=== PATIENT | female | born 1970 | race Two or more races ===

== ENCOUNTER → 2016-10-06 | Outpatient (CLI) | payer OTHER | LOC: RAD 13:16 | PROVIDERS: ATTEND Family Medicine | DX: M50.11 Cervical disc disorder with radiculopathy, high cervical region (principal) | CPT/HCPCS: 72141 ==

== ENCOUNTER → 2016-10-07 | Outpatient (CLI) | payer OTHER ==
--- NOTE | 2016-10-07 07:53 | WOMENS IMAGING REPORT ---
EXAM DESCRIPTION: U/S ABDOMEN LIMITED COMPLETED DATE/TIME: 10/07/2016 7:28 am REASON FOR STUDY: R10.816 ABD TENDERNESS EPIGASTRIC R10.816 EPIGASTRIC ABDOMINAL TENDERNESS COMPARISON: 12/04/2012 TECHNIQUE: Dynamic and static grayscale images acquired of the abdomen and recorded on PACS. Additio nal selected color Doppler and spectral images recorded. LIMITATIONS: None. FINDINGS: PANCREAS: No masses. Visualized pancreatic duct normal caliber. LIVER: No masses. Echotexture normal. LIVER VASCULATURE: Normal directional flow of the main portal vein and hepatic veins. GALLBLADDER: No stones. Normal wall thickness. No pericholecystic fluid. ULTRASOUND-DETECTED JARRETT'S SIGN: Negative. INTRAHEPATIC DUCTS AND COMMON DUCT: CBD and intrahepatic ducts normal caliber. No filling defects. INFERIOR VENA CAVA: Normal flow. AORTA: No aneurysm. RIGHT KIDNEY: Normal size. Normal echogenicity. No solid or suspicious masses. No hydronephrosis. No calcifications. PERITONEAL AND RIGHT PLEURAL SPACE: No ascites or effusions. OTHER: No other significant findings. TECHNICAL DOCUMENTATION: JOB ID: [id number] [employer]- All Rights Reserved
== END ==
LOC: WI 06:52
PROVIDERS: ATTEND Internal Medicine Gastroenterology
DX: R10.816 Epigastric abdominal tenderness (principal)
CPT/HCPCS: 76705

== ENCOUNTER → 2017-03-07 | Outpatient (CLI) | payer OTHER ==
--- NOTE | 2017-03-07 17:30 | WOMENS IMAGING REPORT ---
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 Bilateral 90 mediolateral views Bilateral breast ultrasound was performed in the upper outer quadrants and right breast retroareolar ultrasound was performed given history of clear right nipple discharge. LIMITATIONS: None. FINDINGS: RIGHT BREAST MASSES: No suspicious masses. CALCIFICATIONS: No new or suspicious calcifications. ARCHITECTURAL DISTORTION: None. DEVELOPING DENSITY: None. ASYMMETRY: None noted. OTHER: No other significant findings. LEFT BREAST MASSES: No suspicious masses. CALCIFICATIONS: No new or suspicious calcifications. ARCHITECTURAL DISTORTION: None. DEVELOPING DENSITY: None. ASYMMETRY: None noted. OTHER: No other significant finding. Read with the assistance of CAD: .[facility] - R2 Cenova Version 1.3 .[facility] Imaging - R2 Cenova Version 1.3 .[facility] Imaging - R2 Cenova Version 2.4 .[facility] - R2 Cenova Version 2.4 .[facility] - R2 Holistic Health Practitioner Version 9.2 Bilateral breast ultrasound: Patient describes palpable abnormalities in the upper outer quadrants bilaterally. Ultrasound of the right and left upper outer quadrant demonstrates no discrete cystic or solid lesions. No focal find ings. No worrisome acoustic absorption. Patient gives a history of clear right nipple discharge. Ultrasound of the right retroareolar region demonstrates no dilated ducts, cysts, or nodules. IMPRESSION: No mammographic or sonographic evidence for malignancy bilaterally. BREAST DENSITY: c. The breasts are heterogeneously dense, which may obscure small masses. BIRAD: 1 Negative. RECOMMENDATION: RECOMMENDED FOLLOW UP: Clinical follow-up for nipple discharge and palpable abnormal ity. Otherwise, please consider bilateral screening tomosynthesis in February 2018 given heterogeneously dense tissue SPECIFIC INTERVENTION/IMAGING/CONSULTATION RECOMMENDED:Clinical follow-up for nipple discharge and pa lpable abnormalities. COMMUNICATION:Patient notified by letter COMMENT: The patient has been notified of the results by letter per MQSA requirements. Additional no tification policies are in place for contacting patient with suspicious or incomplete findings. Quality ID #[id number]: The [employer] recommends an annual screening mammogram for women aged 40 years or over. This facility utilizes a reminder system to ensure that all patients receive reminder letters, and/or direct phone calls for appointments. This includes reminders for routine scr eening mammograms, diagnostic mammograms, or other Breast Imaging Interventions when appropriate. Th is patient will be placed in the appropriate reminder system. The [employer] (ACR) has developed recommendations for screening MRI of the breast s in certain patient populations, to be used in conjunction with mammography. Breast MRI surveillanc e may be appropriate for women with more than 20% lifetime risk of developing breast cancer as deter mined by genetic testing, significant family history of the disease, or history of mantle radiation f or Hodgkins Disease. ACR Practice Guidelines 2008. TECHNICAL DOCUMENTATION: FINDING NUMBER: (1) ASSESSMENT: (1) JOB ID: [id number] [employer]- All Rights Reserved
--- NOTE | 2017-03-07 17:30 | WOMENS IMAGING REPORT ---
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 Bilateral 90 mediolateral views Bilateral breast ultrasound was performed in the upper outer quadrants and right breast retroareolar ultrasound was performed given history of clear right nipple discharge. LIMITATIONS: None. FINDINGS: RIGHT BREAST MASSES: No suspicious masses. CALCIFICATIONS: No new or suspicious calcifications. ARCHITECTURAL DISTORTION: None. DEVELOPING DENSITY: None. ASYMMETRY: None noted. OTHER: No other significant findings. LEFT BREAST MASSES: No suspicious masses. CALCIFICATIONS: No new or suspicious calcifications. ARCHITECTURAL DISTORTION: None. DEVELOPING DENSITY: None. ASYMMETRY: None noted. OTHER: No other significant finding. Read with the assistance of CAD: .[facility] - R2 Cenova Version 1.3 .[facility] Imaging - R2 Cenova Version 1.3 .[facility] Imaging - R2 Cenova Version 2.4 .[facility] - R2 Cenova Version 2.4 .[facility] - R2 Hand Glove Cleaner Version 9.2 Bilateral breast ultrasound: Patient describes palpable abnormalities in the upper outer quadrants bilaterally. Ultrasound of the right and left upper outer quadrant demonstrates no discrete cystic or solid lesions. No focal find ings. No worrisome acoustic absorption. Patient gives a history of clear right nipple discharge. Ultrasound of the right retroareolar region demonstrates no dilated ducts, cysts, or nodules. IMPRESSION: No mammographic or sonographic evidence for malignancy bilaterally. BREAST DENSITY: c. The breasts are heterogeneously dense, which may obscure small masses. BIRAD: 1 Negative. RECOMMENDATION: RECOMMENDED FOLLOW UP: Clinical follow-up for nipple discharge and palpable abnormal ity. Otherwise, please consider bilateral screening tomosynthesis in February 2018 given heterogeneously dense tissue SPECIFIC INTERVENTION/IMAGING/CONSULTATION RECOMMENDED:Clinical follow-up for nipple discharge and pa lpable abnormalities. COMMUNICATION:Patient notified by letter COMMENT: The patient has been notified of the results by letter per MQSA requirements. Additional no tification policies are in place for contacting patient with suspicious or incomplete findings. Quality ID #[id number]: The [employer] recommends an annual screening mammogram for women aged 40 years or over. This facility utilizes a reminder system to ensure that all patients receive reminder letters, and/or direct phone calls for appointments. This includes reminders for routine scr eening mammograms, diagnostic mammograms, or other Breast Imaging Interventions when appropriate. Th is patient will be placed in the appropriate reminder system. The [employer] (ACR) has developed recommendations for screening MRI of the breast s in certain patient populations, to be used in conjunction with mammography. Breast MRI surveillanc e may be appropriate for women with more than 20% lifetime risk of developing breast cancer as deter mined by genetic testing, significant family history of the disease, or history of mantle radiation f or Hodgkins Disease. ACR Practice Guidelines 2008. TECHNICAL DOCUMENTATION: FINDING NUMBER: (1) ASSESSMENT: (1) JOB ID: [id number] [employer]- All Rights Reserved
--- NOTE | 2017-03-07 17:30 | WOMENS IMAGING REPORT ---
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 Bilateral 90 mediolateral views Bilateral breast ultrasound was performed in the upper outer quadrants and right breast retroareolar ultrasound was performed given history of clear right nipple discharge. LIMITATIONS: None. FINDINGS: RIGHT BREAST MASSES: No suspicious masses. CALCIFICATIONS: No new or suspicious calcifications. ARCHITECTURAL DISTORTION: None. DEVELOPING DENSITY: None. ASYMMETRY: None noted. OTHER: No other significant findings. LEFT BREAST MASSES: No suspicious masses. CALCIFICATIONS: No new or suspicious calcifications. ARCHITECTURAL DISTORTION: None. DEVELOPING DENSITY: None. ASYMMETRY: None noted. OTHER: No other significant finding. Read with the assistance of CAD: .[facility] - R2 Cenova Version 1.3 .[facility] Imaging - R2 Cenova Version 1.3 .[facility] Imaging - R2 Cenova Version 2.4 .[facility] [place] - R2 Cenova Version 2.4 .[facility] - R2 Junk Dealer Version 9.2 Bilateral breast ultrasound: Patient describes palpable abnormalities in the upper outer quadrants bilaterally. Ultrasound of the right and left upper outer quadrant demonstrates no discrete cystic or solid lesions. No focal find ings. No worrisome acoustic absorption. Patient gives a history of clear right nipple discharge. Ultrasound of the right retroareolar region demonstrates no dilated ducts, cysts, or nodules. IMPRESSION: No mammographic or sonographic evidence for malignancy bilaterally. BREAST DENSITY: c. The breasts are heterogeneously dense, which may obscure small masses. BIRAD: 1 Negative. RECOMMENDATION: RECOMMENDED FOLLOW UP: Clinical follow-up for nipple discharge and palpable abnormal ity. Otherwise, please consider bilateral screening tomosynthesis in February 2018 given heterogeneously dense tissue SPECIFIC INTERVENTION/IMAGING/CONSULTATION RECOMMENDED:Clinical follow-up for nipple discharge and pa lpable abnormalities. COMMUNICATION:Patient notified by letter COMMENT: The patient has been notified of the results by letter per MQSA requirements. Additional no tification policies are in place for contacting patient with suspicious or incomplete findings. Quality ID #225: The [employer] recommends an annual screening mammogram for women aged 40 years or over. This facility utilizes a reminder system to ensure that all patients receive reminder letters, and/or direct phone calls for appointments. This includes reminders for routine scr eening mammograms, diagnostic mammograms, or other Breast Imaging Interventions when appropriate. Th is patient will be placed in the appropriate reminder system. The [employer] (ACR) has developed recommendations for screening MRI of the breast s in certain patient populations, to be used in conjunction with mammography. Breast MRI surveillanc e may be appropriate for women with more than 20% lifetime risk of developing breast cancer as deter mined by genetic testing, significant family history of the disease, or history of mantle radiation f or Hodgkins Disease. ACR Practice Guidelines 2008. TECHNICAL DOCUMENTATION: FINDING NUMBER: (1) ASSESSMENT: (1) JOB ID: [id number] [employer]- All Rights Reserved
== END ==
LOC: WI 10:11
PROVIDERS: ATTEND Family Medicine
DX: D48.61 Neoplasm of uncertain behavior of right breast (principal)
CPT/HCPCS: 76642; G0204; 77066

== ENCOUNTER → 2017-04-04 | Outpatient (CLI) | payer OTHER ==
[2017-04-06 06:39] LABS: PROLACTIN 6.4 ng/mL (4.8-23.3)
[2017-04-06 07:13] LABS: ESTRADIOL 40.6 pg/mL (.); FOLLICLE STIMULATING HORMONE 8.3 mIU/mL (.); LUTEINIZING HORMONE 4.8 mIU/mL (.)
== END ==
LOC: OD 16:32
PROVIDERS: ATTEND Family Medicine
DX: O20.9 Hemorrhage in early pregnancy, unspecified (principal); N39.0 Urinary tract infection, site not specified; N64.52 Nipple discharge; N95.1 Menopausal and female climacteric states
CPT/HCPCS: 36415; 82670; 83001; 83002; 84146; 84702; 87086

== ENCOUNTER 2018-11-27 03:32 | Emergency (ER) | payer OTHER ==
[2018-11-27 08:08] LABS: ABSOLUTE BASOPHILS # (AUTO) 0.1 10^3/uL (0.0-0.2); ABSOLUTE EOSINOPHILS # (AUTO) 0.1 10^3/uL (0.0-0.6); ABSOLUTE LYMPHOCYTES (AUTO) 1.8 10^3/uL (0.5-4.7); ABSOLUTE NEUT (AUTO) 7.8 10^3/uL (1.7-8.2); BASOPHILS % (AUTO) 0.9 % (0-2); EOSINOPHILS % (AUTO) 1.2 % (0-6); HEMATOCRIT 32.4 % (36.0-47.0); HEMOGLOBIN 10.8 g/dL (12.0-15.5); LYMPHOCYTES % (AUTO) 16.5 % (13-45); MEAN CORPUSCULAR HEMOGLOBIN 24.3 pg (27.0-33.4); MEAN CORPUSCULAR HGB CONC 33.3 g/dL (32.0-36.0); MEAN CORPUSCULAR VOLUME 73 fl (80-97); MONOCYTES % (AUTO) 9.2 % (3-13); PLATELET COUNT 277 10^3/uL (150-450); RED BLOOD COUNT 4.42 10^6/uL (3.72-5.28); SEGMENTED NEUTROPHILS % (AUTO) 72.2 % (42-78); TOTAL CELLS COUNTED % (AUTO) 100 %; WHITE BLOOD COUNT 10.8 10^3/uL (4.0-10.5)
[2018-11-27 08:18] LABS: ALANINE AMINOTRANSFERASE 20 U/L (9-52); ALBUMIN 3.6 g/dL (3.5-5.0); ALKALINE PHOSPHATASE 76 U/L (38-126); ANION GAP 10 (5-19); ASPARTATE AMINO TRANSFERASE 12 U/L (14-36); BILIRUBIN,DIRECT 0.5 mg/dL (0.0-0.4); BILIRUBIN,TOTAL 0.5 mg/dL (0.2-1.3); BLOOD UREA NITROGEN 16 mg/dL (7-20); CALCIUM 9.5 mg/dL (8.4-10.2); CARBON DIOXIDE 23 mmol/L (22-30); CHLORIDE 106 mmol/L (98-107); GLUCOSE 95 mg/dL (75-110); POTASSIUM 4.2 mmol/L (3.6-5.0); SODIUM 138.6 mmol/L (137-145); TOTAL PROTEIN 6.3 g/dL (6.3-8.2)
--- NOTE | 2018-11-27 08:57 | RADIOLOGY REPORT (SQ) ---
EXAM DESCRIPTION: U/S NON-OB PELVIS TV W/O DOP COMPLETED DATE/TIME: 11/27/2018 8:42 am REASON FOR STUDY: sudden onset pelvic pain,LMP 10-17-18 COMPARISON: None. TECHNIQUE: Dynamic and static grayscale images acquired of the pelvis via transvaginal approach and recorded on PACS. Additional selected color Doppler and spectral images recorded. LIMITATIONS: None. FINDINGS: UTERUS: Contour normal. No mass. Uterus is 9 x 8 x 7 cm in size ENDOMETRIAL STRIPE: No focal or generalized thickening. No masses. Endometrial stripe 11 mm in thick ness CERVIX: No nabothian cysts. Cervix closed, 2.7 cm in length. RIGHT OVARY AND DOPPLER: Normal size, 3 x 2.4 x 2.6 cm in size with a 2 cm simple cyst. No worrisome masses. Normal arterial vascular flow without evidence for torsion. LEFT OVARY AND DOPPLER: Normal size, 2.8 x 1.4 x 1.3 cm. No worrisome masses. Normal arterial vascula r flow without evidence for torsion. FREE FLUID: None noted. OTHER: No other significant finding. IMPRESSION: NORMAL TRANSVAGINAL PELVIC ULTRASOUND. TECHNICAL DOCUMENTATION: JOB ID: [id number] [employer]- All Rights Reserved Rev-02/02 Reading location - IP/workstation name: [email or web address]
[2018-11-27 09:18] LABS: APPEARANCE,URINE SLIGHTLY-CLOUDY; BILIRUBIN,URINE NEGATIVE (NEGATIVE); COLOR,URINE YELLOW; GLUCOSE, URINE NEGATIVE (NEGATIVE); KETONES,URINE NEGATIVE (NEGATIVE); LEUKOCYTE ESTERASE,URINE NEGATIVE (NEGATIVE); NITRITE,URINE NEGATIVE (NEGATIVE); PROTEIN,URINE NEGATIVE (NEGATIVE); URINE SPECIFIC GRAVITY 1.023; UROBILINOGEN,URINE NEGATIVE mg/dL (<2.0)
[2018-11-27 10:43] VITALS: BP 115/50
--- NOTE | 2018-11-27 12:14 | ER Document Report ---
Entered by LEI WANG SCRIBE 11/27/18 0729 Acting as scribe for:DEJUAN OBANDO MD ED General - General Chief Complaint: Abdominal Pain Stated Complaint: PELVIC PAIN Time Seen by Provider: 11/27/18 07:10 Primary Care Provider: SOCORRO SRINIVASAN MD [Primary Care Provider] - Follow up as needed Mode of Arrival: Ambulatory Information source: Patient Notes: Patient is a 47 year old female with hypothyroidism presents to the emergency department complaining of abdominal pain onset this morning. Patient states she was woken from her sleep around 0300 due to sharp right lower quadrant abdominal pain. She states the pain has now migrated to the left side of the abdomen. She also reports her last menstrual period being 10/17/2018 and states that is very abnormal due to having regular periods. She states she took multiple tests which were all negative. She denies any vaginal bleeding or vaginal discharge. Patient also mentions having chronic right shoulder pain that radiates into the right side of her neck, right anterior chest wall and sends tingling sensations to the 1st, 2nd and 3rd fingers. Of significance, patient reports a history of 1 miscarriage and 2 ectopic pregnancies which was resolved with medications. TRAVEL OUTSIDE OF THE [place] IN LAST 30 DAYS: No - Related Data Allergies/Adverse Reactions: latex [Latex] Allergy (Verified 02/06/12 22:53) morphine [Morphine] Allergy (Verified 02/06/12 22:53) IVP Dye Allergy (Severe, Uncoded 07/28/16 13:19) Past Medical History - General Information source: Patient - Social History Smoking Status: Never Smoker Cigarette use (# per day): No Chew tobacco use (# tins/day): No Smoking Education Provided: No Frequency of alcohol use: None Family History: None Past Surgical History: Reports: Hx Appendectomy, Hx Thyroid Surgery - Immunizations Hx Diphtheria, Pertussis, Tetanus Vaccination: Yes Review of Systems - Review of Systems Constitutional: No symptoms reported EENT: No symptoms reported Cardiovascular: No symptoms reported Respiratory: No symptoms reported Gastrointestinal: See HPI, Abdominal pain Genitourinary: No symptoms reported Female Genitourinary: See HPI, Last menstrual period Musculoskeletal: See HPI Skin: No symptoms reported Hematologic/Lymphatic: No symptoms reported Neurological/Psychological: See HPI -: Yes All other systems reviewed and negative Physical Exam - Vital signs Vitals: Temp Pulse Resp BP Pulse Ox 97.9 F 114 H 14 134/57 H 100 11/27/18 03:38 11/27/18 03:38 11/27/18 03:38 11/27/18 03:38 11/27/18 03:38 - Notes Notes: GENERAL: Alert, interacts well. No acute distress. HEAD: Normocephalic, atraumatic. EYES: Pupils equal, round, and reactive to light. Extraocular movements intact. ENT: Oral mucosa moist, tongue midline. NECK: Full range of motion. Supple. Trachea midline. LUNGS: Clear to auscultation bilaterally, no wheezes, rales, or rhonchi. No respiratory distress. HEART: Regular rate and rhythm. No murmurs, gallops, or rubs. ABDOMEN: Soft, right pelvic tenderness to palpation. Palpating the right pelvic region causes pain in the left pelvic region, does not complain of pain when palpating left pelvic region. Non-distended. Bowel sounds present in all 4 quadrants. No guarding, rigidity, or rebound. EXTREMITIES: Moves all 4 extremities spontaneously. NEUROLOGICAL: Alert and oriented x3. Normal speech. PSYCH: Normal affect, normal mood. SKIN: Warm, dry, normal turgor. No rashes or lesions noted Course - Re-evaluation Re-evalutation: 11/27/18 10:24 Transvaginal ultrasound is normal. Serum hCG is negative. Urinalysis is unremarkable. CBC shows an iron deficiency anemia, otherwise is unremarkable. - Vital Signs Vital signs: Temp Pulse Resp BP Pulse Ox 97.9 F 114 H 14 134/57 H 100 11/27/18 03:38 11/27/18 03:38 11/27/18 03:38 11/27/18 03:38 11/27/18 03:38 - Laboratory Result Diagrams: 11/27/18 07:40 11/27/18 07:40 Laboratory results interpreted by me: 11/27/18 11/27/18 07:40 07:40 WBC 10.8 H Hgb 10.8 L Hct 32.4 L MCV 73 L MCH 24.3 L RDW 18.0 H Direct Bilirubin 0.5 H AST 12 L - Diagnostic Test Radiology reviewed: Reports reviewed - Transvaginal ultrasound is normal. Discharge - Discharge Clinical Impression: Pelvic pain Iron deficiency anemia Qualifiers: Iron deficiency anemia type: unspecified iron deficiency Qualified Code(s): D50.9 - Iron deficiency anemia, unspecified Condition: Stable Disposition: HOME, SELF-CARE Additional Instructions: Abdominal Pain There are many causes of abdominal pain. Pain can mean a serious problem requiring surgery (such as appendicitis). It can also be an innocent problem that goes away on its own (such as a viral infection). Often, time must pass to determine the cause of pain. The physician does not feel that hospitalization is necessary, at present. Things may change within the next 24 hours. Call the doctor or come back for re- examination if any problems occur, such as: (1) Pain that becomes more severe, steady, or becomes concentrated in one specific area. Also, pain that is more severe with movement or coughing. (2) Vomiting that persists or becomes more frequent. (3) Blood in the vomitus, urine, or bowel movements. Blood in the stool may have a tarry or black appearance. (4) Shaking chills or fever greater than 100 degrees F. (5) The abdomen becomes more distended or swollen. (6) Bowel movements cease. (7) Failure to improve as expected. Anemia, Iron Deficiency You have anemia (a lower than normal amount of red blood cells). Our tests show it's due to lack of iron in your body. In infants and children, iron deficiency is usually due to lack of iron in the diet. In adults, it's most often caused by blood loss (heavy periods or intestinal bleeding) or by . If the cause of iron deficiency is not clear, we evaluate for hidden intestinal bleeding. Another possible cause is failure to absorb iron properly. Iron-deficiency is treated with iron supplements. Iron pills can upset your stomach and cause constipation. Taking it with food decreases nausea. Expect t he stool to become darker (but not black). Taking iron with a juice high in vitamin C (orange juice, tomato juice) increases absorption. You can increase your dietary iron by eating liver, oysters, and lean beef; wheat germ, peas, and lentils; and molasses, dried prunes, spinach, and broccoli. Contact the doctor at once if you note black or tarry-looking stools, bloody vomiting, shortness of breath, chest pain, or faintness. Follow-up with your doctor this week to review your lab work to see if you should be on iron supplements. Return to the emergency room if there is any significant change or worsening in your lower abdominal pain. RETURN TO THE EMERGENCY ROOM IF ANY NEW OR WORSENING SYMPTOMS. Referrals: SOCORRO SRINIVASAN MD [Primary Care Provider] - Follow up as needed I personally performed the services described in the documentation, reviewed and edited the documentation which was dictated to the scribe in my presence, and it accurately records my words and actions.
== END 2018-11-27 10:46 | disposition home or self-care (01) ==
LOC: ER 03:32
DX: R10.2 Pelvic and perineal pain (principal); D50.9 Iron deficiency anemia, unspecified; R10.9 Unspecified abdominal pain; R10.31 Right lower quadrant pain; M25.511 Pain in right shoulder; M54.2 Cervicalgia; R07.89 Other chest pain; R20.0 Anesthesia of skin
CPT/HCPCS: 36415; 76830; 80053; 81001; 84703; 85025; 99284

== ENCOUNTER → 2019-01-09 | Outpatient (CLI) | payer OTHER ==
--- NOTE | 2019-01-10 08:25 | WOMENS IMAGING REPORT ---
EXAM DESCRIPTION: BILAT SCREENING MAMMO W/CAD COMPLETED DATE/TIME: 01/09/2019 2:41 pm REASON FOR STUDY: Z12.31 ROUTINE BILATERAL SCREENING Z12.31 ENCNTR SCREEN MAMMOGRAM FOR MALIGNANT N EOPLASM OF NICKI COMPARISON: Multiple since 2008 TECHNIQUE: Standard craniocaudal and mediolateral oblique views of each breast recorded using [employer] l acquisition. LIMITATIONS: None. FINDINGS: No masses, calcifications or architectural distortion. No areas of suspicion. Read with the assistance of CAD. .[facility] - R2 Cenova Version 1.3 .[facility] Imaging - R2 Cenova Version 2.1 .[facility] Imaging - R2 Cenova Version 2.4 .[facility] - R2 Cenova Version 2.4 .[facility] - R2 Volunteer Manager Version 9.2 IMPRESSION: NORMAL MAMMOGRAM. BIRADS 1. BREAST DENSITY: c. The breasts are heterogeneously dense, which may obscure small masses. BIRAD: 1 NEGATIVE RECOMMENDATION: ROUTINE SCREENING COMMENT: The patient has been notified of the results by letter per SA requirements. Additional no tification policies are in place for contacting patient with suspicious or incomplete findings. Quality ID #[id number]: The [employer] [employer] recommends an annual screening mammogram for women aged 40 years or over. This facility utilizes a reminder system to ensure that all patients receive reminder letters, and/or direct phone calls for appointments. This includes reminders for routine scr eening mammograms, diagnostic mammograms, or other Breast Imaging Interventions when appropriate. Th is patient will be placed in the appropriate reminder system. TECHNICAL DOCUMENTATION: FINDING NUMBER: (1) ASSESSMENT: (1) JOB ID: [id number] [employer]- All Rights Reserved Reading location - IP/workstation name: [email or web address]
== END ==
LOC: WI 14:26
PROVIDERS: ATTEND Family Medicine
DX: Z12.31 Encounter for screening mammogram for malignant neoplasm of breast (principal); M51.27 Other intervertebral disc displacement, lumbosacral region
CPT/HCPCS: 77067

== ENCOUNTER → 2019-01-09 | Outpatient (CLI) | payer OTHER ==
[2019-01-09 14:49] LABS: ABSOLUTE BASOPHILS # (AUTO) 0.1 10^3/uL (0.0-0.2); ABSOLUTE EOSINOPHILS # (AUTO) 0.2 10^3/uL (0.0-0.6); ABSOLUTE LYMPHOCYTES (AUTO) 1.6 10^3/uL (0.5-4.7); ABSOLUTE MONOCYTES (AUTO) 0.6 10^3/uL (0.1-1.4); BASOPHILS % (AUTO) 0.9 % (0-2); HEMATOCRIT 41.1 % (36.0-47.0); HEMOGLOBIN 13.9 g/dL (12.0-15.5); LYMPHOCYTES % (AUTO) 19.1 % (13-45); MEAN CORPUSCULAR HEMOGLOBIN 27.8 pg (27.0-33.4); MEAN CORPUSCULAR HGB CONC 33.9 g/dL (32.0-36.0); MEAN CORPUSCULAR VOLUME 82 fl (80-97); MONOCYTES % (AUTO) 7.3 % (3-13); PLATELET COUNT 213 10^3/uL (150-450); RED BLOOD COUNT 5.01 10^6/uL (3.72-5.28); RED CELL DISTRIBUTION WIDTH 22.5 % (11.5-14.0); SEGMENTED NEUTROPHILS % (AUTO) 70.7 % (42-78); TOTAL CELLS COUNTED % (AUTO) 100 %; WHITE BLOOD COUNT 8.4 10^3/uL (4.0-10.5)
[2019-01-09 15:06] LABS: OVALOCYTES 1+; PLATELET COMMENT ADEQUATE; POIKILOCYTOSIS 1+; SCHISTOCYTES SLIGHT; TEAR DROP CELLS SLIGHT
[2019-01-09 15:10] LABS: ALANINE AMINOTRANSFERASE 17 U/L (9-52); ALKALINE PHOSPHATASE 56 U/L (38-126); ANION GAP 10 (5-19); ASPARTATE AMINO TRANSFERASE 12 U/L (14-36); BILIRUBIN,DIRECT 0.2 mg/dL (0.0-0.4); BILIRUBIN,TOTAL 0.5 mg/dL (0.2-1.3); BLOOD UREA NITROGEN 14 mg/dL (7-20); CALCIUM 9.2 mg/dL (8.4-10.2); CARBON DIOXIDE 22 mmol/L (22-30); CHLORIDE 106 mmol/L (98-107); CHOLESTEROL 192.75 mg/dL (0-200); GLUCOSE 77 mg/dL (75-110); IRON(TIBC) 79.7 ug/dL (37-170); POTASSIUM 4.6 mmol/L (3.6-5.0); SODIUM 137.7 mmol/L (137-145); TOTAL PROTEIN 6.7 g/dL (6.3-8.2); TRIGLYCERIDES 117 mg/dL (<150)
--- NOTE | 2019-01-09 15:16 | RADIOLOGY REPORT (SQ) ---
EXAM DESCRIPTION: T SPINE AP/LAT COMPLETED DATE/TIME: 01/09/2019 2:09 pm REASON FOR STUDY: DORSALGIA D50.9 IRON DEFICIENCY ANEMIA, UNSPECIFIED R07.9 CHEST PAIN, UNSPECIFIE D E78.5 HYPERLIPIDEMIA, UNSPECIFIED COMPARISON: None. NUMBER OF VIEWS: Two views. TECHNIQUE: AP and lateral radiographic images acquired of the thoracic spine. LIMITATIONS: None. FINDINGS: MINERALIZATION: Normal. ALIGNMENT: Normal. No scoliosis. VERTEBRAE: No fracture or bone lesion. Maintained height, normal segmentation. DISCS: No significant loss of height or significant narrowing. No large osteophytes. HARDWARE: None in the spine. MEDIASTINUM AND SOFT TISSUES: Normal heart size and aortic contour. No soft tissue abnormality. VISUALIZED LUNG RUBI: Clear. OTHER: No other significant finding. IMPRESSION: NO SIGNIFICANT RADIOGRAPHIC FINDING IN THE THORACIC SPINE. TECHNICAL DOCUMENTATION: JOB ID: [id number] [employer]- All Rights Reserved Reading location - IP/workstation name: [email or web address]
[2019-01-09 15:21] LABS: DIRECT LDL 118 mg/dL (<100)
== END ==
LOC: OD 13:39
PROVIDERS: ATTEND Family Medicine
DX: D50.9 Iron deficiency anemia, unspecified (principal); R07.9 Chest pain, unspecified; E78.5 Hyperlipidemia, unspecified; M54.9 Dorsalgia, unspecified
CPT/HCPCS: 36415; 72070; 80053; 80061; 82728; 83540; 83550; 85025; 85379

== ENCOUNTER → 2019-10-11 | Outpatient (CLI) | payer OTHER ==
[2019-10-11 12:31] LABS: ABSOLUTE EOSINOPHILS # (AUTO) 0.1 10^3/uL (0.0-0.6); ABSOLUTE LYMPHOCYTES (AUTO) 1.6 10^3/uL (0.5-4.7); ABSOLUTE MONOCYTES (AUTO) 0.6 10^3/uL (0.1-1.4); ABSOLUTE NEUT (AUTO) 4.8 10^3/uL (1.7-8.2); BASOPHILS % (AUTO) 0.7 % (0-2); EOSINOPHILS % (AUTO) 1.5 % (0-6); HEMATOCRIT 41.3 % (36.0-47.0); HEMOGLOBIN 14.1 g/dL (12.0-15.5); LYMPHOCYTES % (AUTO) 22.6 % (13-45); MEAN CORPUSCULAR HEMOGLOBIN 29.7 pg (27.0-33.4); MEAN CORPUSCULAR HGB CONC 34.2 g/dL (32.0-36.0); MEAN CORPUSCULAR VOLUME 87 fl (80-97); MONOCYTES % (AUTO) 7.9 % (3-13); PLATELET COUNT 199 10^3/uL (150-450); RED BLOOD COUNT 4.76 10^6/uL (3.72-5.28); RED CELL DISTRIBUTION WIDTH 13.5 % (11.5-14.0); SEGMENTED NEUTROPHILS % (AUTO) 67.3 % (42-78); TOTAL CELLS COUNTED % (AUTO) 100 %; WHITE BLOOD COUNT 7.1 10^3/uL (4.0-10.5)
--- NOTE | 2019-10-11 12:35 | RADIOLOGY REPORT (SQ) ---
EXAM DESCRIPTION: HIPS BILATERAL COMPLETED DATE/TIME: 10/11/2019 12:17 pm REASON FOR STUDY: PAIN IN LEFT HIP M47.9 SPONDYLOSIS, UNSPECIFIED K21.9 GASTRO-ESOPHAGEAL REFLUX D ISEASE WITHOUT ESOPHAGITIS E78.5 HYPERLIPIDEMIA, UNSPECIFIED COMPARISON: None. NUMBER OF VIEWS: Two views TECHNIQUE: AP pelvis and additional frog-leg view of both hips. LIMITATIONS: None. FINDINGS: MINERALIZATION: Normal. HIPS: No acute fracture or dislocation. The joint spaces are preserved. PELVIS AND SACRUM: No acute fracture or dislocation. PUBIS AND ISCHIUM: The ilioischial and iliopectineal lines are intact. There is no diastasis of the pubic symphysis. LOWER LUMBAR SPINE: Refer to the separate report. SOFT TISSUES: No findings. OTHER: No other finding. IMPRESSION: No acute osseous abnormalities of the hips. TECHNICAL DOCUMENTATION: JOB ID: [id number] [employer]- All Rights Reserved Reading location - IP/workstation name: [email or web address]
--- NOTE | 2019-10-11 12:38 | RADIOLOGY REPORT (SQ) ---
EXAM DESCRIPTION: LUMBAR SPINE COMPLETE COMPLETED DATE/TIME: 10/11/2019 12:17 pm REASON FOR STUDY: SPONDYLOSIS, UNSPECIFIED M47.9 SPONDYLOSIS, UNSPECIFIED K21.9 GASTRO-ESOPHAGEAL REFLUX DISEASE WITHOUT ESOPHAGITIS E78.5 HYPERLIPIDEMIA, UNSPECIFIED COMPARISON: None. NUMBER OF VIEWS: Five views including obliques. TECHNIQUE: AP, lateral, oblique, and sacral radiographic images acquired of the lumbar spine. LIMITATIONS: None. FINDINGS: MINERALIZATION: Normal. SEGMENTATION: There are 5 lumbar-type vertebral bodies. There is no transition anatomy at the lumbos acral junction. ALIGNMENT: Normal. VERTEBRAE: The lumbar vertebral body heights are preserved. There is no fracture. DISCS: The intervertebral disc space heights are preserved. POSTERIOR ELEMENTS: Intact. There is no pars interarticularis defect. HARDWARE: None in the spine. PARASPINAL SOFT TISSUES: Normal. PELVIS: Intact. OTHER: No other finding. IMPRESSION: No fracture or malalignment of the lumbar spine. No considerable degenerative findings. TECHNICAL DOCUMENTATION: JOB ID: [id number] [employer]- All Rights Reserved Reading location - IP/workstation name: [email or web address]
[2019-10-11 12:47] LABS: ALBUMIN 4.1 g/dL (3.5-5.0); ALKALINE PHOSPHATASE 73 U/L (38-126); ANION GAP 11 (5-19); ASPARTATE AMINO TRANSFERASE 18 U/L (14-36); BILIRUBIN,DIRECT 0.2 mg/dL (0.0-0.4); BILIRUBIN,TOTAL 0.5 mg/dL (0.2-1.3); BLOOD UREA NITROGEN 12 mg/dL (7-20); C-REACTIVE PROTEIN 6.7 mg/L (<10.0); CALCIUM 9.5 mg/dL (8.4-10.2); CARBON DIOXIDE 27 mmol/L (22-30); CHLORIDE 102 mmol/L (98-107); CHOLESTEROL 207.64 mg/dL (0-200); CREATINE KINASE 76 U/L (30-135); GLUCOSE 79 mg/dL (75-110); IRON(TIBC) 104.9 ug/dL (37-170); POTASSIUM 4.2 mmol/L (3.6-5.0); TOTAL PROTEIN 7.5 g/dL (6.3-8.2); TRIGLYCERIDES 106 mg/dL (<150)
[2019-10-11 12:56] LABS: DIRECT LDL 136 mg/dL (<100)
[2019-10-11 13:01] LABS: FREE T3 2.77 pg/mL (2.77-5.27); FREE T4 (FREE THYROXINE) 1.51 ng/dL (0.78-2.19)
[2019-10-11 13:08] LABS: ERYTHROCYTE SEDIMENTATION RATE 16 mm/hr (0-20)
[2019-10-11 13:15] LABS: THYROID STIMULATING HORMONE 0.09 uIU/mL (0.47-4.68)
[2019-10-12 16:37] LABS: ANTINUCLEAR ANTIBODIES Negative (Negative)
[2019-10-14 07:12] LABS: CYCLIC CITRUL PEPTIDE IGG/A AB 123 units (0-19)
== END ==
LOC: OD 11:30
PROVIDERS: ATTEND Family Medicine
DX: M47.9 Spondylosis, unspecified (principal); K21.9 Gastro-esophageal reflux disease without esophagitis; E78.5 Hyperlipidemia, unspecified; D50.9 Iron deficiency anemia, unspecified; M25.552 Pain in left hip; C73 Malignant neoplasm of thyroid gland; R07.89 Other chest pain
CPT/HCPCS: 36415; 72110; 73522; 80053; 80061; 82550; 82728; 83540; 83550; 84439; 84443; 84481; 85025; 85379; 85652; 86038; 86140; 86200; 86430; 86812

== ENCOUNTER → 2020-04-30 | Outpatient (CLI) | payer OTHER ==
--- NOTE | 2020-04-30 15:41 | WOMENS IMAGING REPORT ---
EXAM DESCRIPTION: BILAT SCREENING MAMMO W/CAD IMAGES COMPLETED DATE/TIME: 04/30/2020 2:51 pm REASON FOR STUDY: Z12.31 ENCNTR SCREEN MAMMOGRAM FOR MALIGNANT NEOPLASM OF UPCZYQB88.31 ENCNTR SCRE EN MAMMOGRAM FOR MALIGNANT NEOPLASM OF NICKI COMPARISON: Priors dating back to 2012. EXAM PARAMETERS: Standard craniocaudal and mediolateral oblique views of each breast recorded using digital acquisition. Read with the assistance of CAD. .[facility] - [employer] [facility] Anesthesiologist Version 9.2 LIMITATIONS: None. FINDINGS: RIGHT BREAST MASSES: No suspicious masses. CALCIFICATIONS: No new or suspicious calcifications. ARCHITECTURAL DISTORTION: None. ASYMMETRY: None noted. OTHER: No other significant findings. LEFT BREAST MASSES: Smooth mass about 9.4 cm deep to the nipple not seen on the CC view. CALCIFICATIONS: No new or suspicious calcifications. ARCHITECTURAL DISTORTION: None. ASYMMETRY: None noted. OTHER: No other significant findings. IMPRESSION: Smooth mass left breast. 0 Incomplete: Needs Additional Imaging Evaluation and/or prior Mammograms for Comparison. BREAST DENSITY: c. The breasts are heterogeneously dense, which may obscure small masses. BIRAD: ASSESSMENT: 0 Incomplete: Needs Additional Imaging Evaluation and/or prior Mammograms for C omparison. RECOMMENDATION: RECOMMENDED FOLLOW-UP: Exaggerated CC cone compression views and potential ultrasoun d left breast. The patient will be contacted for additional imaging. COMMENT: The patient has been notified of the results by letter per MQSA requirements. Additional no tification policies are in place for contacting patient with suspicious or incomplete findings. Quality ID #225: The [employer] recommends an annual screening mammogram for women aged 40 years or over. This facility utilizes a reminder system to ensure that all patients receive reminder letters, and/or direct phone calls for appointments. This includes reminders for routine scr eening mammograms, diagnostic mammograms, or other Breast Imaging Interventions when appropriate. Th is patient will be placed in the appropriate reminder system. TECHNICAL DOCUMENTATION: FINDING NUMBER: (1) ASSESSMENT: (1) JOB ID: [id number] [employer]- All Rights Reserved Reading location - IP/workstation name: [email or web address]
== END ==
LOC: WI 14:22
PROVIDERS: ATTEND Family Medicine
DX: Z12.31 Encounter for screening mammogram for malignant neoplasm of breast (principal); M25.552 Pain in left hip; N63.42 Unspecified lump in left breast, subareolar
CPT/HCPCS: 77067

== ENCOUNTER → 2020-05-05 | Outpatient (CLI) | payer OTHER ==
--- NOTE | 2020-05-05 13:00 | WOMENS IMAGING REPORT ---
EXAM DESCRIPTION: U/S BREAST UNILAT LIMITED COMPLETE DATE/TIME: 05/05/2020 11:21 am REASON FOR STUDY: LT INCONCLUSIVE MAMMOGRAM R92.2 R92.2 INCONCLUSIVE MAMMOGRAM FINDINGS: Please see combined report for performance of procedure and radiologic supervision and int erpretation. IMPRESSION: Please see combined report for performance of procedure and radiologic supervision and i nterpretation. Reading location - IP/workstation name: [email or web address]
--- NOTE | 2020-05-05 13:00 | WOMENS IMAGING REPORT ---
EXAM DESCRIPTION: LEFT DIAGNOSTIC MAMMO W/CAD IMAGES COMPLETED DATE/TIME: 05/05/2020 10:37 am REASON FOR STUDY: R92.2 INCONCLUSIVE MAMMOGRAM R92.2 INCONCLUSIVE MAMMOGRAM COMPARISON: Digital bilateral screening mammogram dated 01/09/2019, 03/07/2017 and 05/11/2016. EXAM PARAMETERS: Standard craniocaudal and mediolateral oblique images of the breast recorded with d igital acquisition. Read with the assistance of CAD. .[facility] - [employer] Economic Development Manager Version 9.2 LIMITATIONS: None. FINDINGS: BREAST LATERALITY: LEFT MASSES: Persistent small smooth mass overlies the mid posterior depth of the breast, adjacent to the chest wall. CALCIFICATIONS: No new or suspicious calcifications. ARCHITECTURAL DISTORTION: None. ASYMMETRY: None noted. OTHER: No other significant findings. BREAST ULTRASOUND: TECHNIQUE: Static and dynamic grayscale images acquired of the left breast in the specific areas of c linical/mammographic concern. Selected color Doppler images recorded. ELASTOGRAPHY PERFORMED: No. LIMITATIONS: None. FINDINGS: MASS: In the left axilla, a well circumscribed 7 x 7 x 5 mm lymph node with a hilus of fat likely on a benign reactive basis. This finding likely correlates to the left breast mammogram. ELASTOGRAPHY CHARACTERISTICS: Not applicable. OTHER: No other significant finding. IMPRESSION: 1. Left small axillary lymph node, likely correlates with the left breast mammogram. BREAST DENSITY: c. The breast is heterogeneously dense, which may obscure small masses. BIRAD: ASSESSMENT: 2 Benign findings. RECOMMENDATION: 1. Routine screening mammogram. COMMENT: The patient has been notified of the results by letter per SA requirements. Additional no tification policies are in place for contacting patient with suspicious or incomplete findings. Quality ID #225: The [employer] recommends an annual screening mammogram for women aged 40 years or over. This facility utilizes a reminder system to ensure that all patients receive reminder letters, and/or direct phone calls for appointments. This includes reminders for routine scr eening mammograms, diagnostic mammograms, or other Breast Imaging Interventions when appropriate. Th is patient will be placed in the appropriate reminder system. TECHNICAL DOCUMENTATION: FINDING NUMBER: (1) ASSESSMENT: (1) JOB ID: [id number] 2010 [employer] All Rights Reserved Reading location - IP/workstation name: [email or web address]
== END ==
LOC: WI 10:10
PROVIDERS: ATTEND Family Medicine
DX: R92.2 Inconclusive mammogram (principal)
CPT/HCPCS: 76642; 77065

== ENCOUNTER → 2020-06-30 | Outpatient (CLI) | payer OTHER ==
[2020-06-30 12:23] LABS: ABSOLUTE BASOPHILS # (AUTO) 0.1 10^3/uL (0.0-0.2); ABSOLUTE EOSINOPHILS # (AUTO) 0.1 10^3/uL (0.0-0.6); ABSOLUTE LYMPHOCYTES (AUTO) 1.5 10^3/uL (0.5-4.7); ABSOLUTE MONOCYTES (AUTO) 0.7 10^3/uL (0.1-1.4); ABSOLUTE NEUT (AUTO) 5.9 10^3/uL (1.7-8.2); BASOPHILS % (AUTO) 0.9 % (0-2); EOSINOPHILS % (AUTO) 1.2 % (0-6); HEMATOCRIT 41.8 % (36.0-47.0); HEMOGLOBIN 14.5 g/dL (12.0-15.5); LYMPHOCYTES % (AUTO) 18.1 % (13-45); MEAN CORPUSCULAR HEMOGLOBIN 30.4 pg (27.0-33.4); MEAN CORPUSCULAR HGB CONC 34.7 g/dL (32.0-36.0); MEAN CORPUSCULAR VOLUME 88 fl (80-97); MONOCYTES % (AUTO) 7.9 % (3-13); PLATELET COUNT 213 10^3/uL (150-450); RED BLOOD COUNT 4.76 10^6/uL (3.72-5.28); RED CELL DISTRIBUTION WIDTH 13.3 % (11.5-14.0); SEGMENTED NEUTROPHILS % (AUTO) 71.9 % (42-78); TOTAL CELLS COUNTED % (AUTO) 100 %; WHITE BLOOD COUNT 8.2 10^3/uL (4.0-10.5)
[2020-06-30 12:41] LABS: ALBUMIN 4.2 g/dL (3.5-5.0); ALKALINE PHOSPHATASE 75 U/L (38-126); ANION GAP 12 (5-19); ASPARTATE AMINO TRANSFERASE 21 U/L (14-36); BILIRUBIN,DIRECT 0.2 mg/dL (0.0-0.4); BILIRUBIN,TOTAL 0.6 mg/dL (0.2-1.3); BLOOD UREA NITROGEN 20 mg/dL (7-20); CALCIUM 8.9 mg/dL (8.4-10.2); CARBON DIOXIDE 22 mmol/L (22-30); CHLORIDE 103 mmol/L (98-107); CHOLESTEROL 209.55 mg/dL (0-200); GLUCOSE 89 mg/dL (75-110); IRON(TIBC) 59.1 ug/dL (37-170); POTASSIUM 4.6 mmol/L (3.6-5.0); TOTAL PROTEIN 7.1 g/dL (6.3-8.2); TRIGLYCERIDES 95 mg/dL (<150)
[2020-06-30 12:51] LABS: DIRECT LDL 146 mg/dL (<100)
== END ==
LOC: OD 11:08
PROVIDERS: ATTEND Family Medicine
DX: E78.5 Hyperlipidemia, unspecified (principal); D50.9 Iron deficiency anemia, unspecified; E53.8 Deficiency of other specified B group vitamins; Z79.899 Other long term (current) drug therapy
CPT/HCPCS: 36415; 80053; 80061; 82607; 82728; 83540; 83550; 85025

== ENCOUNTER 2020-09-25 07:49 | Observation (INO) | payer OTHER ==
[2020-09-22 13:09] LABS: APPEARANCE,URINE CLEAR; BILIRUBIN,URINE NEGATIVE (NEGATIVE); COLOR,URINE YELLOW; GLUCOSE, URINE NEGATIVE (NEGATIVE); HEMATOCRIT 41.1 % (36.0-47.0); HEMOGLOBIN 14.3 g/dL (12.0-15.5); KETONES,URINE NEGATIVE (NEGATIVE); LEUKOCYTE ESTERASE,URINE TRACE (NEGATIVE); MEAN CORPUSCULAR HEMOGLOBIN 29.7 pg (27.0-33.4); MEAN CORPUSCULAR HGB CONC 34.8 g/dL (32.0-36.0); MEAN CORPUSCULAR VOLUME 85 fl (80-97); NITRITE,URINE NEGATIVE (NEGATIVE); PLATELET COUNT 206 10^3/uL (150-450); PROTEIN,URINE NEGATIVE (NEGATIVE); RED BLOOD COUNT 4.81 10^6/uL (3.72-5.28); RED CELL DISTRIBUTION WIDTH 13.4 % (11.5-14.0); URINE SPECIFIC GRAVITY 1.011; UROBILINOGEN,URINE NEGATIVE mg/dL (<2.0); WHITE BLOOD COUNT 8.7 10^3/uL (4.0-10.5)
[2020-09-22 13:40] LABS: ALBUMIN 4.1 g/dL (3.5-5.0); ALKALINE PHOSPHATASE 74 U/L (38-126); ANION GAP 9 (5-19); ASPARTATE AMINO TRANSFERASE 21 U/L (14-36); BILIRUBIN,DIRECT 0.1 mg/dL (0.0-0.4); BILIRUBIN,TOTAL 0.5 mg/dL (0.2-1.3); BLOOD UREA NITROGEN 16 mg/dL (7-20); CARBON DIOXIDE 25 mmol/L (22-30); CHLORIDE 103 mmol/L (98-107); GLUCOSE 100 mg/dL (75-110); TOTAL PROTEIN 7.3 g/dL (6.3-8.2)
--- NOTE | 2020-09-23 00:45 | EKG REPORT ---
SEVERITY:- BORDERLINE ECG - SINUS RHYTHM BORDERLINE R WAVE PROGRESSION, ANTERIOR LEADS BORDERLINE T ABNORMALITIES, ANT-LAT LEADS : Confirmed by: Mukesh Gonsales 23-Sep-2020 00:43:43
[~2020-09-25 07:49] MED LIST: CEFAZOLIN 2 GM/D5W RTU 2 GM/50 ML RTUPB IV ONE; CEFAZOLIN 2 GM/D5W RTU 2 GM/50 ML RTUPB IV PRN; EPHEDRINE SULFATE INJ 50 MG/1 ML AMPULE ONE; FENTANYL CITRATE INJ/PF 100 MCG/2 ML AMPUL ONE; HYDROMORPHONE HCL INJ/PF 2 MG/ML AMPULE ONE; LACTATED RINGERS 1000 ML IV PRN; LIDOCAINE 0.5% INJ-PF (5 MG/ML) 50 ML SDV SUBCUT PRN; MIDAZOLAM 2 MG/2 ML INJ ONE; PROPOFOL INJ 200 MG/20 ML VIAL IV ONE; SUGAMMADEX SODIUM 200 MG/2 ML SDV IV ONE
[2020-09-25] MEDS ORDERED: LIDOCAINE 1%/EPINEPHRINE INJ 20 ML VIAL ONE (09:06)
[2020-09-25] MEDS ORDERED: MEPERIDINE HCL/PF INJ 25 MG/1 ML DISP.SYRIN IV PRN (10:08)
[2020-09-25] MEDS ORDERED: PROMETHAZINE HCL INJ 25 MG/1 ML VIAL IV PRN ×2 (10:08)
[2020-09-25] MEDS ORDERED: FENTANYL CITRATE INJ/PF 100 MCG/2 ML AMPUL IV PRN ×3 (10:08)
[2020-09-25] MEDS ORDERED: RINGERS SOLUTION,LACTATED 1,000 ML IV PRN (11:52)
[2020-09-25] MEDS ORDERED: IBUPROFEN 800 MG TABLET PO PRN (11:52)
[2020-09-25] MEDS ORDERED: KETOROLAC TROMETHAMINE INJ/PF 30 MG/1 ML SDV IV PRN (11:52)
[2020-09-25] MEDS ORDERED: TRAMADOL HCL 50 MG TABLET PO PRN ×2 (11:52→11:56)
[2020-09-25] MEDS ORDERED: HYDROMORPHONE HCL INJ/PF 2 MG/ML AMPULE IV PRN (11:55)
[2020-09-25] MEDS ORDERED: FENTANYL CITRATE INJ/PF 100 MCG/2 ML AMPUL ONE (12:10)
--- NOTE | 2020-09-25 12:20 | Operative Report ---
Operative Report DATE OF SURGERY: 09/25/20 PREOPERATIVE DIAGNOSIS: pelvic pain. history of endometiral ablation POSTOPERATIVE DIAGNOSIS: Same as above. Adenomyosis OPERATION: Vaginal hysterectomy with bilateral salpingectomy SURGEON: LATONIA NELSON ANESTHESIA: GA TISSUE REMOVED OR ALTERED: Cervix, uterus, bilateral fallopian tubes COMPLICATIONS: None ESTIMATED BLOOD LOSS: 300cc INTRAOPERATIVE FINDINGS: Cervix normal, Uterus boggy and mildlyl enlarged consistent with adenomyosis. Bilateral fallopian tubes appear normal. Ovaries are small but normal in appearance PROCEDURE: The patient was taken to the operating room and placed on the OR table in the supine position. General anesthesia was administered and found to be adequate. She was then placed in the dorsal lithotomy position and prepped, then draped in usual sterile fashion. An iodine free scrub was used to clean the vagina due to patient allergy. The buttocks were noted to be well of the end of the table. 2 grams of Ancef were given IV prior to the procedure for infection prophylaxis. A timeout was taken. A weighted short speculum was placed in the posterior vaginal vault and a Kelly retractor was used to bring the cervix into good view. A single-tooth tenaculum was used to grasp the anterior lip of the cervix and single-tooth tenaculum was used to grasp the posterior lip of the cervix. These tenacula were placed under traction to bring the cervix to the vaginal introitus. The vaginal mucosa at its junction to the cervix was injected with lidocaine 1% anteriorly and posteriorly. Using a scalpel, an incision was made around the cervix at the level of the cervicovaginal junction. Using gentle traction the vaginal mucosa was pushed away from the cervix anteriorly. The supravaginal septum was divided and the bladder was retracted anteriorly. The posterior cul-de-sac was then opened using curved Valencia scissors and a long weighted speculum was placed. Each side the uterosacral ligaments and peritoneum were clamped cut and suture- ligated. These were tagged for later use to support the vaginal cuff next the uterine vessels and cardinal ligaments were clamped coagulated and transected using a LigaSure impact. This process continued in a segmental fashion until the level of the utero-ovarian ligament which was then crossclamped coagulated and cut bilaterally the ureters were palpated and noted to be out of harm's way each fallopian tube was grasped with a Margaret clamp and brought into good view in a stepwise fashion and then using the LigaSure the mesosalpinx below the fallopian tubes were taken down after crossclamping coagulating and cutting all areas were checked for hemostasis 1 small area was noted on the left side and this was grasped with a Elizabeth clamp then using the LigaSure this area was crossclamped and coagulated good hemostasis was noted. Uterosacral ligaments bilaterally were attached to the vaginal mucosa to assist with support for the vagina. The peritoneum was then closed using 0 Vicryl suture in a pursestring type fashion and perla incorporating the uterosacral ligament stitches bilaterally. And an angle stitch was done bilaterally to begin cuff closure and then 0 Vicryl pop offs were used in a jnebyx-by-pgsfu fashion to close the remaining vaginal cuff any bleeding was controlled of the cuff with Bovie electrocautery good hemostasis was noted. The cuff was assessed and noted to be intact Copious amounts of warm irrigation, normal saline were used to clear any debris from the vagina and the incision was inspected once more and noted to be nicely hemostatic. All instrument sponge and needle counts were correct x3 for the procedure. The patient tolerated the procedure well and will proceed to recovery in stable condition. Urine output for the procedure was 300 cc of clear yellow urine.
[2020-09-25] MEDS ORDERED: ACETAMINOPHEN 1,000 MG/100 ML RTUPB IV ONE ×2 (12:28→13:30)
[2020-09-25] MEDS ORDERED: ONDANSETRON HCL INJ/PF 4 MG/2 ML SDV ONE (15:34)
[2020-09-25] MEDS ORDERED: METOCLOPRAMIDE HCL INJ/PF 10 MG/2 ML SDV ONE (15:34)
[2020-09-25] MEDS ORDERED: ROCURONIUM BROMIDE INJ 50 MG/5 ML VIAL IV ONE (15:34)
[2020-09-25] MEDS ORDERED: SUCCINYLCHOLINE CHLORIDE INJ 200 MG/10 ML VIAL ONE (15:34)
[2020-09-25] MEDS ORDERED: DEXAMETHASONE SOD PHOSPHATE INJ 4 MG/1 ML VIAL ONE (15:34)
[2020-09-25] MEDS ORDERED: KETOROLAC TROMETHAMINE 60 MG/2 ML SDV ONE (15:34)
[2020-09-25] MEDS ORDERED: METOPROLOL TARTRATE PF/INJ 5 MG/5 ML SDV IV ONE (15:34)
--- NOTE | 2020-09-25 17:00 | PDOC PROGRESS REPORT ---
Subjective Date:: 09/25/20 Subjective:: Doing well. Feels some pressure like she has to void. No n/v, f/c. She is tolera ting clears and crackers. Pain well managed [facility] tramadol and ibuprofen PRN. No discharge or bleeding Reason For Visit: R10.2 Physical Exam - Physical Exam Vital Signs: Temp Pulse Resp BP Pulse Ox 98.7 F 87 17 104/50 L 98 09/25/20 16:20 09/25/20 16:20 09/25/20 16:20 09/25/20 16:20 09/25/20 16:20 Intake & Output 09/24/20 09/25/20 09/26/20 06:59 06:59 06:59 Intake Total 2250 Output Total 800 Balance 1450 Weight 66.5 kg General appearance: PRESENT: no acute distress, cooperative GI/Abdominal exam: PRESENT: normal bowel sounds, soft Extremities exam: PRESENT: full ROM. ABSENT: calf tenderness - SCDs in place, clubbing, pedal edema Neurological exam: PRESENT: alert, awake, oriented to person, oriented to place, oriented to time, oriented to situation, CN II-XII grossly intact. ABSENT: motor sensory deficit Psychiatric exam: PRESENT: appropriate affect, normal mood. ABSENT: homicidal ideation, suicidal ideation - Gynecological Exam Labia: normal Urethra: normal Introitus: normal - Vaginal packing removed. Result Laboratory Results: 09/22/20 12:13 09/22/20 12:13 Assessment & Plan - Diagnosis (1) Pelvic pain Is this a current diagnosis for this admission?: Yes - Time Time Spent with patient: Less than 15 minutes Medications reviewed and adjusted accordingly: Yes Anticipated discharge: Home Anticipated DC Timeframe: within 24 hours Disposition: stable - Plan Summary Plan Summary: S/p [facility] BS-POD #1 -VSS -doing well -Good UOP in jones cath/clear -Pain well managed -Vaginal packing removed. -Leave jones till 0600 tomorrow then remove -Regular diet -Continue current care -SCDs while in bed. Can get up to chair
[2020-09-25] MEDS: FAMOTIDINE 20 MG TABLET PO SCH (21:44)
[2020-09-26] MEDS: IBUPROFEN 800 MG TABLET PO SCH ×2 (03:48→12:02)
[2020-09-26 05:51] LABS: HEMATOCRIT 34.7 % (36.0-47.0); HEMOGLOBIN 11.9 g/dL (12.0-15.5); MEAN CORPUSCULAR HEMOGLOBIN 29.5 pg (27.0-33.4); MEAN CORPUSCULAR HGB CONC 34.3 g/dL (32.0-36.0); MEAN CORPUSCULAR VOLUME 86 fl (80-97); PLATELET COUNT 197 10^3/uL (150-450); RED BLOOD COUNT 4.03 10^6/uL (3.72-5.28); WHITE BLOOD COUNT 15.1 10^3/uL (4.0-10.5)
[2020-09-26] MEDS ORDERED: IBUPROFEN 800 MG TABLET PO SCH (06:00)
[2020-09-26 06:17] LABS: ALBUMIN 3.2 g/dL (3.5-5.0); ALKALINE PHOSPHATASE 58 U/L (38-126); ANION GAP 10 (5-19); ASPARTATE AMINO TRANSFERASE 19 U/L (14-36); BILIRUBIN,DIRECT 0.3 mg/dL (0.0-0.4); BILIRUBIN,TOTAL 0.4 mg/dL (0.2-1.3); BLOOD UREA NITROGEN 12 mg/dL (7-20); CALCIUM 8.3 mg/dL (8.4-10.2); CARBON DIOXIDE 22 mmol/L (22-30); CHLORIDE 103 mmol/L (98-107); GLUCOSE 123 mg/dL (75-110); POTASSIUM 3.7 mmol/L (3.6-5.0); TOTAL PROTEIN 5.9 g/dL (6.3-8.2)
[2020-09-26] MEDS ORDERED: ACETAMINOPHEN 325 MG TABLET PO PRN (09:18)
[2020-09-26] MEDS ORDERED: ACETAMINOPHEN 325 MG TABLET ONE (09:53)
--- NOTE | 2020-09-26 09:53 | PDOC DISCHARGE SUMMARY ---
Impression - Admit/DC Date/PCP Admission Date/Primary Care Provider: 09/25/20 13:47 SOCORRO SRINIVASAN MD Discharge Date: 09/26/20 - Discharge Diagnosis (1) Pelvic pain Is this a current diagnosis for this admission?: Yes - Assessment Summary: s/p total vaginal hysterectomy with bilateral salpingectomy due to pelvic pain. No complications. Doing well. Took tramadol post op and had lip numbness. Stopped. Pain managed well with Ibuprofen 800mg every 8 hours and tylenol every 6hours. Will discharge with this regimen. Tolerating PO well. Passing gas. Voiding without jones No vaginal bleeding or abnormal vaginal discharge. DIscharge home stable condition with 2 wks follow up - Additional Information Resuscitation Status: Full Code Discharge Diet: Regular Discharge Activity: Activity As Tolerated, No Lifting Over 10 Pounds, Slowly Increase Activity, No tub bath, Walk Frequently Referrals: SOCORRO SRINIVASAN MD [Primary Care Provider] - Prescriptions: Cephalexin Monohydrate [Keflex 500 mg Capsule] 500 mg PO Q12 7 Days #13 capsule Ibuprofen [Motrin 800 mg Tablet] 800 mg PO Q8H PRN 15 Days #45 tablet PRN Reason: For Pain Home Medications: Levothyroxine Sodium [Synthroid 0.1 mg Tablet] 100 mcg PO DAILY 02/06/12 Omeprazole 20 mg PO DAILY 09/22/20 Cephalexin Monohydrate [Keflex 500 mg Capsule] 500 mg PO Q12 7 Days #13 capsule 09/26/20 Ibuprofen [Motrin 800 mg Tablet] 800 mg PO Q8H PRN 15 Days #45 tablet 09/26/20 History of Present Illiness History of Present Illness: JASON ROBERTS is a 49 year old female Physical Exam - Physical Exam Vital Signs: Temp Pulse Resp BP Pulse Ox 98.3 F 68 18 94/44 L 100 09/26/20 08:00 09/26/20 08:00 09/26/20 07:35 09/26/20 07:35 09/26/20 07:35 Intake & Output 09/25/20 09/26/20 09/27/20 06:59 06:59 06:59 Intake Total 2490 Output Total 2800 200 Balance -310 -200 Weight 65.6 kg - Gynecological Exam Labia: normal Urethra: normal Introitus: normal - Vaginal packing removed. Results Laboratory Results: WBC 15.1 10^3/uL (4.0-10.5) H 09/26/20 04:41 RBC 4.03 10^6/uL (3.72-5.28) 09/26/20 04:41 Hgb 11.9 g/dL (12.0-15.5) L 09/26/20 04:41 Hct 34.7 % (36.0-47.0) L 09/26/20 04:41 MCV 86 fl (80-97) 09/26/20 04:41 MCH 29.5 pg (27.0-33.4) 09/26/20 04:41 MCHC 34.3 g/dL (32.0-36.0) 09/26/20 04:41 RDW 13.0 % (11.5-14.0) 09/26/20 04:41 Plt Count 197 10^3/uL (150-450) 09/26/20 04:41 Sodium 134.8 mmol/L (137-145) L 09/26/20 04:41 Potassium 3.7 mmol/L (3.6-5.0) 09/26/20 04:41 Chloride 103 mmol/L (98-107) 09/26/20 04:41 Carbon Dioxide 22 mmol/L (22-30) 09/26/20 04:41 Anion Gap 10 (5-19) 09/26/20 04:41 BUN 12 mg/dL (7-20) 09/26/20 04:41 Creatinine 0.71 mg/dL (0.52-1.25) 09/26/20 04:41 Est GFR ( Amer) > 60 (>60) 09/26/20 04:41 Est GFR (MDRD) Non-Af > 60 (>60) 09/26/20 04:41 Glucose 123 mg/dL (75-110) H 09/26/20 04:41 Calcium 8.3 mg/dL (8.4-10.2) L 09/26/20 04:41 Total Bilirubin 0.4 mg/dL (0.2-1.3) 09/26/20 04:41 Direct Bilirubin 0.3 mg/dL (0.0-0.4) 09/26/20 04:41 Neonat Total Bilirubin Not Reportable 09/26/20 04:41 Neonat Direct Bilirubin Not Reportable 09/26/20 04:41 Neonat Indirect Bili Not Reportable 09/26/20 04:41 AST 19 U/L (14-36) 09/26/20 04:41 ALT 12 U/L (<35) 09/26/20 04:41 Alkaline Phosphatase 58 U/L (38-126) 09/26/20 04:41 Total Protein 5.9 g/dL (6.3-8.2) L 09/26/20 04:41 Albumin 3.2 g/dL (3.5-5.0) L 09/26/20 04:41 TSH 3.11 uIU/mL (0.47-4.68) 09/22/20 12:13 Urine Color YELLOW 09/22/20 12:13 Urine Appearance CLEAR 09/22/20 12:13 Urine pH 7.0 (5.0-9.0) 09/22/20 12:13 Ur Specific [place] 1.011 09/22/20 12:13 Urine Protein NEGATIVE mg/dL (NEGATIVE) 09/22/20 12:13 Urine Glucose (UA) NEGATIVE mg/dL (NEGATIVE) 09/22/20 12:13 Urine Ketones NEGATIVE mg/dL (NEGATIVE) 09/22/20 12:13 Urine Blood NEGATIVE (NEGATIVE) 09/22/20 12:13 Urine Nitrite NEGATIVE (NEGATIVE) 09/22/20 12:13 Urine Bilirubin NEGATIVE (NEGATIVE) 09/22/20 12:13 Urine Urobilinogen NEGATIVE mg/dL (<2.0) 09/22/20 12:13 Ur Leukocyte Esterase TRACE (NEGATIVE) H 09/22/20 12:13 Urine WBC (Auto) 1 /HPF 09/22/20 12:13 Urine RBC (Auto) 2 /HPF 09/22/20 12:13 Squamous Epi Cells Auto 6 /HPF 09/22/20 12:13 Urine Mucus (Auto) RARE /LPF 09/22/20 12:13 Urine Ascorbic Acid NEGATIVE (NEGATIVE) 09/22/20 12:13 Urine HCG, Qual NEGATIVE (NEGATIVE) 09/25/20 07:45 COVID-19 Source See comment 09/22/20 12:08 COVID-19 (JULI) Not Detected (Not Detect) 09/22/20 12:08 Blood Type O POSITIVE 09/22/20 12:13 Antibody Screen NEGATIVE 09/22/20 12:13 Stroke Is this a Stroke Patient?: No Acute Heart Failure Is this a Heart Failure Patient?: No
[2020-09-26] MEDS: FAMOTIDINE 20 MG TABLET PO SCH (09:58)
[2020-09-26] MEDS ORDERED: LEVOTHYROXINE SODIUM 0.1 MG TABLET PO SCH (10:00)
[2020-09-26 10:37] VITALS: BP 101/56
[2020-09-26] MEDS ORDERED: CEPHALEXIN 500 MG CAPSULE PO SCH (11:30)
== END 2020-09-26 12:30 | disposition home or self-care (01) ==
LOC: OROUT 07:49 → INTOOBSV 13:47 → 2N 13:47
PROVIDERS: ADMIT Obstetrics & Gynecology; ATTEND Obstetrics & Gynecology
DX: R10.2 Pelvic and perineal pain (principal); N80.0 Endometriosis of uterus; D25.1 Intramural leiomyoma of uterus; N92.4 Excessive bleeding in the premenopausal period; Z01.812 Encounter for preprocedural laboratory examination; Z20.822 Contact with and (suspected) exposure to COVID-19; N94.10 Unspecified dyspareunia; Z79.899 Other long term (current) drug therapy; Z79.890 Hormone replacement therapy; Z85.850 Personal history of malignant neoplasm of thyroid; Z90.49 Acquired absence of other specified parts of digestive tract; Z98.890 Other specified postprocedural states; K21.9 Gastro-esophageal reflux disease without esophagitis
CPT/HCPCS: 93005; 86900; 86901; 36415 ×2; 86850; 84443; 85027 ×2; 87635; 81025; 80053 ×2; 81001; 88307 ×2; 93010; 00944; 58262; G0378 ×2; G0379; C1758; J2250; J3490 ×4; J1100; J1885; J3010; J2765; J0330; J2405; J2704; J0690; J0131; C9803; 944; J1170